=== PATIENT | male | born 1955 | race Hispanic/Latino ===

== ENCOUNTER 2024-01-10 10:04 | Emergency (ER) | payer OTHER, SELFPAY ==
[2024-01-10 10:11] VITALS: BP 146/82
--- NOTE | 2024-01-10 10:34 | ED.GENMED ---
Addendum entered and electronically signed by Song Thacker MD 01/12/24 21:51:
Pt seen in ED by case management -currently there are no beds and facilities able to accommodate the patient as transfer. Without information, family at bedside, would like to take the patient home, where he is closer to family as well as his
healthcare professionals. Additional resources provided by case management prior to discharge. Patient will be given Klonopin prior to discharge, due to 2-hour ride back home. Family made aware that as soon as he returns home, his primary care
physician will need to be contacted to continue all his previous medications.
Original Note:
History of Present Illness
<Karely Gonzales MD, Resident - Last Filed: 01/11/24 06:19>
General
Chief Complaint: Crisis Evaluation
Time Seen by Provider: 01/10/24 10:08
History of Present Illness
History of Present Illness:
68-year-old male with past medical history of CKD s/p kidney transplant, dementia (Lewy body), MDD, hep C, COPD, hypertension presenting to the ED via EMS from [facility] for combating staff. Staff member is en route for 302. Patient is anxious but
cooperative. Denies any systemic symptoms. Patient does not know which hospital he is not, where he lives and the time of the day. States wants to get out of the hospital and says 'it is getting very dangerous here'. Denies auditory or visual
hallucinations, SI/HI.
Review of Systems
<Karely Gonzales MD, Resident - Last Filed: 01/11/24 06:19>
Review of Systems
Constitutional: Reports no symptoms
EENT: Reports no symptoms
Respiratory: Reports no symptoms
Cardiac: Reports no symptoms
ABD/GI: Reports no symptoms
: Reports no symptoms
Musculoskeletal: Reports no symptoms
Skin: Reports no symptoms
Neurological: Reports no symptoms
Endocrine: Reports no symptoms
Hematologic/Lymphatic: Reports no symptoms
Psychiatric: Reports no symptoms
Phy Exam
<Karely Gonzales MD, Resident - Last Filed: 01/11/24 06:19>
Physical Exam
Physical Exam:
GENERAL: Alert, in no apparent distress
EYE: pupils equal and reactive
NECK: Supple, no significant adenopathy.
ENT: o/p clr, mmm.
CARDIAC: Regular rate and rhythm.
LUNGS: Clear breath sounds bilaterally, no acute respiratory distress, no wheezes/rales/rhonchi
ABDOMEN: Soft, without focal tenderness, no r/g, no cvat
NEUROLOGICAL: Alert and oriented, no focal neuro deficits
SKIN: Warm and dry, skin intact.
MUSCULOSKELETAL: No edema, well perfused.
PSYCH: Normal and appropriate interaction.
Course
<Karely Gonzales MD, Resident - Last Filed: 01/11/24 06:19>
Orders/Labs/Results
Orders:
Orders
01/10/24 10:54
Crisis Consult Urgent
Reason for Consult: 302
01/10/24 10:59
PSYCHIATRY CONSULT Urgent
Consulting Provider: Alex Ojeda
Was physician already notified: Yes
Reason for consult: 302
01/10/24 11:13
Case Management Consult ONCE
Case Management Consult: Other
Urinalysis Reflex To Culture Urgent
01/10/24 11:17
Basic Metabolic Panel Urgent
Complete Blood Count/No Diff Urgent
TSH Reflex To Free T4 Urgent
01/10/24 14:35
Apixaban [Eliquis] 5 mg PO NOW STA
Budesonide/Formoterol 160/4.5 [Symbicort 160/4.5 Mcg Inhaler] 2 puff INH R NOW STA
Clonazepam [Klonopin] 0.5 mg PO NOW STA
Famotidine [Pepcid] 20 mg PO NOW STA
01/10/24 14:40
Sodium Bicarbonate 650 mg PO NOW STA
01/10/24 14:43
Lorazepam [Ativan] 0.5 mg PO Q4HPRN PRN
01/10/24 14:58
Nebivolol HCl [Bystolic] 20 mg PO NOW STA
01/10/24 Dinner
Regular
At Your Request: Limited, Termite Exterminator Required
Amlodipine [Norvasc] 2.5 mg PO DAILY
Quetiapine Fumarate [Seroquel] 100 mg PO NOW STA
01/10/24 15:02
Sertraline HCl [Zoloft] 100 mg PO NOW STA
01/10/24 15:04
Tacrolimus [Prograf] 1 mg PO NOW STA
01/10/24 16:55
Haloperidol [Haldol] 1 mg PO NOW STA
01/10/24 17:40
PRN Pain Medication Management As Directed
May give lesser potent ordered pain med per pt: Yes
preference::
Protocol:: Medication orders for pain may be administered in a
manner that supports deferring to patient preference
when the pt is:
- Requesting an ordered lesser potent pain medication.
Least to most potent pain medications are defined
as: acetaminophen < NSAID < tramadol < opioids
(morphine, oxycodone, hydromorphone).
- Requesting a lesser dose of the same medication IF
ORDERED.
- Requesting a less intrusive route of administration
if both routes are prescribed by the provider (PO <
IV).
01/10/24 17:41
Code Status As Directed
Resuscitation Status: Full Code
01/10/24 18:00
Quetiapine Fumarate [Seroquel] 100 mg PO QPM
01/10/24 18:16
Acetaminophen [Tylenol] 650 mg PO Q6HPRN PRN
Bisacodyl [Dulcolax] 10 mg RECTAL DAILYPRN PRN
Haloperidol Lactate [Haldol] 1 mg IV Q4HPRN PRN
Magnesium Hydroxide [Milk of Magnesia] 30 ml PO [id number] PRN
Phosphate Enema [Fleet Phosphate Enema-Adult] 118 ml RECTAL DAILYPRN PRN
Polyethylene Glycol Powder [Miralax] 17 grams PO DAILYPRN PRN
Simethicone [Mylicon] 80 mg PO Q6HPRN PRN
sennosides-docusate sodium [Senna Plus] 1 tab-cap PO DAILYPRN PRN
01/10/24 20:00
Apixaban [Eliquis] 5 mg PO BID
Budesonide/Formoterol 160/4.5 [Symbicort 160/4.5 Mcg Inhaler] 1 puff INH R BID
Cholecalciferol (Vitamin D3) [VITAMIN D3 (cholecalciferol)] 125 mcg PO Q48H
Nebivolol HCl [Bystolic] 20 mg PO BID
Sodium Bicarbonate 650 mg PO BID
01/10/24 22:00
Melatonin 3 mg PO HS
Tacrolimus [Prograf] 1 mg PO HS
clonazepam 0.5 mg PO TID
mycophenolate sodium 720 mg PO TID
01/10/24 22:59
Bisacodyl [Dulcolax] 10 mg RECTAL DAILYPRN PRN
01/10/24 23:00
Clonazepam [Klonopin] 0.5 mg PO TID
Sodium Bicarbonate 650 mg PO BID
Tacrolimus [Prograf] 1 mg PO HS
01/10/24 23:04
Magnesium Hydroxide [Milk of Magnesia] 30 ml PO [id number] PRN
01/10/24 23:07
Polyethylene Glycol Powder [Miralax] 17 grams PO DAILYPRN PRN
01/10/24 23:08
Docusate W/Senna [Senokot-S] 1 tablet PO DAILYPRN PRN
Simethicone [Mylicon] 80 mg PO Q6HPRN PRN
01/10/24 23:09
Phosphate Enema [Fleet Phosphate Enema-Adult] 118 ml RECTAL DAILYPRN PRN
01/10/24 23:15
Melatonin 3 mg PO HS
Mycophenolic Acid Dr [Myfortic Delayed Rel.] 720 mg PO TID
Nebivolol HCl [Bystolic] 20 mg PO BID
01/10/24 23:16
Acetaminophen [Tylenol] 650 mg PO Q6HPRN PRN
01/11/24 08:00
Amlodipine [Norvasc] 7.5 mg PO DAILY
Amlodipine [Norvasc] 7.5 mg PO DAILY
Apixaban [Eliquis] 5 mg PO BID
Aspirin Low Dose EC [Aspir Low (Enteric Coated)] 81 mg PO DAILY
Aspirin Low Dose EC [Aspir Low (Enteric Coated)] 81 mg PO DAILY
Budesonide/Formoterol 160/4.5 [Symbicort 160/4.5 Mcg Inhaler] 1 puff INH R BID
Cholecalciferol (Vitamin D3) [VITAMIN D3 (cholecalciferol)] 125 mcg PO Q48H
Cyanocobalamin [Vitamin B-12] 1,000 mcg PO DAILY
Cyanocobalamin [Vitamin B-12] 1,000 mcg PO DAILY
Famotidine [Pepcid] 20 mg PO DAILY
Famotidine [Pepcid] 20 mg PO DAILY
Loperamide [Imodium Liquid] 7.5 mg PO DAILY
Loperamide [Imodium Liquid] 7.5 mg PO DAILY
Magnesium l-Lactate [Mag-Tab Sr] 168 mg PO DAILY
Multivitamin [Theragran] 1 tablet PO DAILY
Multivitamin [Theragran] 1 tablet PO DAILY
Nebivolol HCl [Bystolic] 20 mg PO BID
Quetiapine Fumarate [Seroquel] 125 mg PO DAILY
Quetiapine Fumarate [Seroquel] 125 mg PO DAILY
Sertraline HCl [Zoloft] 100 mg PO DAILY
Sertraline HCl [Zoloft] 50 mg PO DAILY
Tacrolimus [Prograf] 2 mg PO DAILY
Tacrolimus [Prograf] 2 mg PO DAILY
Tamsulosin [Flomax] 0.4 mg PO DAILY
Tamsulosin [Flomax] 0.4 mg PO DAILY
Thiamine HCl [Vitamin B1] 100 mg PO DAILY
Thiamine HCl [Vitamin B1] 100 mg PO DAILY
magnesium chloride 128 mg PO DAILY
Abnormal Lab Results
01/10/24
11:17
RBC 3.48 L 10^6/uL
(4.70-6.10)
Hgb 9.9 L g/dL
(13.0-18.0)
Hct 31.5 L %
(39.0-52.0)
MCHC 31.4 L g/dL
(33.0-37.0)
Chloride 109 H mmol/L
(98-107)
BUN 30 H mg/dl
(9-20)
01/10/24 11:17
01/10/24 11:17
Vital Signs
Initial and Last Documented VS:
Initial Vital Signs
Pulse Ox
98
01/10/24 10:10
Last Documented Vital Signs
Temp Pulse Resp BP Pulse Ox
99 F 72 16 151/68 97
01/10/24 10:11 01/11/24 04:00 01/11/24 04:00 01/11/24 04:00 01/11/24 03:00
<Lewis Mcghee MD - Last Filed: 01/10/24 11:54>
Orders/Labs/Results
Orders:
Orders
01/10/24 10:54
Crisis Consult Urgent
Reason for Consult: 302
01/10/24 10:59
PSYCHIATRY CONSULT Urgent
Consulting Provider: Alex Ojeda
Was physician already notified: Yes
Reason for consult: 302
01/10/24 11:13
Case Management Consult ONCE
Case Management Consult: Other
Urinalysis Reflex To Culture Urgent
01/10/24 11:17
Basic Metabolic Panel Urgent
Complete Blood Count/No Diff Urgent
TSH Reflex To Free T4 Urgent
01/10/24 14:35
Apixaban [Eliquis] 5 mg PO NOW STA
Budesonide/Formoterol 160/4.5 [Symbicort 160/4.5 Mcg Inhaler] 2 puff INH R NOW STA
Clonazepam [Klonopin] 0.5 mg PO NOW STA
Famotidine [Pepcid] 20 mg PO NOW STA
01/10/24 14:40
Sodium Bicarbonate 650 mg PO NOW STA
01/10/24 14:43
Lorazepam [Ativan] 0.5 mg PO Q4HPRN PRN
01/10/24 14:58
Nebivolol HCl [Bystolic] 20 mg PO NOW STA
01/10/24 Dinner
Regular
At Your Request: Limited, Termite Exterminator Required
Amlodipine [Norvasc] 2.5 mg PO DAILY
Quetiapine Fumarate [Seroquel] 100 mg PO NOW STA
01/10/24 15:02
Sertraline HCl [Zoloft] 100 mg PO NOW STA
01/10/24 15:04
Tacrolimus [Prograf] 1 mg PO NOW STA
01/10/24 16:55
Haloperidol [Haldol] 1 mg PO NOW STA
01/10/24 17:40
PRN Pain Medication Management As Directed
May give lesser potent ordered pain med per pt: Yes
preference::
Protocol:: Medication orders for pain may be administered in a
manner that supports deferring to patient preference
when the pt is:
- Requesting an ordered lesser potent pain medication.
Least to most potent pain medications are defined
as: acetaminophen < NSAID < tramadol < opioids
(morphine, oxycodone, hydromorphone).
- Requesting a lesser dose of the same medication IF
ORDERED.
- Requesting a less intrusive route of administration
if both routes are prescribed by the provider (PO <
IV).
01/10/24 17:41
Code Status As Directed
Resuscitation Status: Full Code
01/10/24 18:00
Quetiapine Fumarate [Seroquel] 100 mg PO QPM
01/10/24 18:16
Acetaminophen [Tylenol] 650 mg PO Q6HPRN PRN
Bisacodyl [Dulcolax] 10 mg RECTAL DAILYPRN PRN
Haloperidol Lactate [Haldol] 1 mg IV Q4HPRN PRN
Magnesium Hydroxide [Milk of Magnesia] 30 ml PO [id number] PRN
Phosphate Enema [Fleet Phosphate Enema-Adult] 118 ml RECTAL DAILYPRN PRN
Polyethylene Glycol Powder [Miralax] 17 grams PO DAILYPRN PRN
Simethicone [Mylicon] 80 mg PO Q6HPRN PRN
sennosides-docusate sodium [Senna Plus] 1 tab-cap PO DAILYPRN PRN
01/10/24 20:00
Apixaban [Eliquis] 5 mg PO BID
Budesonide/Formoterol 160/4.5 [Symbicort 160/4.5 Mcg Inhaler] 1 puff INH R BID
Cholecalciferol (Vitamin D3) [VITAMIN D3 (cholecalciferol)] 125 mcg PO Q48H
Nebivolol HCl [Bystolic] 20 mg PO BID
Sodium Bicarbonate 650 mg PO BID
01/10/24 22:00
Melatonin 3 mg PO HS
Tacrolimus [Prograf] 1 mg PO HS
clonazepam 0.5 mg PO TID
mycophenolate sodium 720 mg PO TID
01/10/24 22:59
Bisacodyl [Dulcolax] 10 mg RECTAL DAILYPRN PRN
01/10/24 23:00
Clonazepam [Klonopin] 0.5 mg PO TID
Sodium Bicarbonate 650 mg PO BID
Tacrolimus [Prograf] 1 mg PO HS
01/10/24 23:04
Magnesium Hydroxide [Milk of Magnesia] 30 ml PO [id number] PRN
01/10/24 23:07
Polyethylene Glycol Powder [Miralax] 17 grams PO DAILYPRN PRN
01/10/24 23:08
Docusate W/Senna [Senokot-S] 1 tablet PO DAILYPRN PRN
Simethicone [Mylicon] 80 mg PO Q6HPRN PRN
01/10/24 23:09
Phosphate Enema [Fleet Phosphate Enema-Adult] 118 ml RECTAL DAILYPRN PRN
01/10/24 23:15
Melatonin 3 mg PO HS
Mycophenolic Acid Dr [Myfortic Delayed Rel.] 720 mg PO TID
Nebivolol HCl [Bystolic] 20 mg PO BID
01/10/24 23:16
Acetaminophen [Tylenol] 650 mg PO Q6HPRN PRN
01/11/24 08:00
Amlodipine [Norvasc] 7.5 mg PO DAILY
Amlodipine [Norvasc] 7.5 mg PO DAILY
Apixaban [Eliquis] 5 mg PO BID
Aspirin Low Dose EC [Aspir Low (Enteric Coated)] 81 mg PO DAILY
Aspirin Low Dose EC [Aspir Low (Enteric Coated)] 81 mg PO DAILY
Budesonide/Formoterol 160/4.5 [Symbicort 160/4.5 Mcg Inhaler] 1 puff INH R BID
Cholecalciferol (Vitamin D3) [VITAMIN D3 (cholecalciferol)] 125 mcg PO Q48H
Cyanocobalamin [Vitamin B-12] 1,000 mcg PO DAILY
Cyanocobalamin [Vitamin B-12] 1,000 mcg PO DAILY
Famotidine [Pepcid] 20 mg PO DAILY
Famotidine [Pepcid] 20 mg PO DAILY
Loperamide [Imodium Liquid] 7.5 mg PO DAILY
Loperamide [Imodium Liquid] 7.5 mg PO DAILY
Magnesium l-Lactate [Mag-Tab Sr] 168 mg PO DAILY
Multivitamin [Theragran] 1 tablet PO DAILY
Multivitamin [Theragran] 1 tablet PO DAILY
Nebivolol HCl [Bystolic] 20 mg PO BID
Quetiapine Fumarate [Seroquel] 125 mg PO DAILY
Quetiapine Fumarate [Seroquel] 125 mg PO DAILY
Sertraline HCl [Zoloft] 100 mg PO DAILY
Sertraline HCl [Zoloft] 50 mg PO DAILY
Tacrolimus [Prograf] 2 mg PO DAILY
Tacrolimus [Prograf] 2 mg PO DAILY
Tamsulosin [Flomax] 0.4 mg PO DAILY
Tamsulosin [Flomax] 0.4 mg PO DAILY
Thiamine HCl [Vitamin B1] 100 mg PO DAILY
Thiamine HCl [Vitamin B1] 100 mg PO DAILY
magnesium chloride 128 mg PO DAILY
Abnormal Lab Results
01/10/24
11:17
RBC 3.48 L 10^6/uL
(4.70-6.10)
Hgb 9.9 L g/dL
(13.0-18.0)
Hct 31.5 L %
(39.0-52.0)
MCHC 31.4 L g/dL
(33.0-37.0)
Chloride 109 H mmol/L
(98-107)
BUN 30 H mg/dl
(9-20)
01/10/24 11:17
01/10/24 11:17
Vital Signs
Initial and Last Documented VS:
Initial Vital Signs
Pulse Ox
98
01/10/24 10:10
Last Documented Vital Signs
Temp Pulse Resp BP Pulse Ox
99 F 72 16 151/68 97
01/10/24 10:11 01/11/24 04:00 01/11/24 04:00 01/11/24 04:00 01/11/24 03:00
<Karely Gonzales MD, Resident - Last Filed: 01/11/24 06:19>
*Critical Care Note
Total Time (30-74mins, 75-104mins- exclusive of procedures): Not Applicable
ED Attending Note
<Karely Gonzales MD, Resident - Last Filed: 01/11/24 06:19>
-
Portions of this chart may have been created with voice recognition software.� Occasional wrong word or��sound alike� substitutions may have occurred due to the inherent limitations of voice recognition software.
<Lewis Mcghee MD - Last Filed: 01/10/24 11:54>
ED Attending Note
Patient seen and examined by attending physician: Yes
I performed a history and physical exam of patient and discussed management with resident, I reviewed resident's note and agree with documented findings and plan of care.: Yes
ED Attending Note:
68-year-old male sent in for agitated behavior from the dementia facility. He got there recently after a prolonged stay at [facility]. Apparently has been a placement issue. Denies acute medical complaints. However the facility
apparently will not take him back.
On exam patient is nontoxic in no distress. He is mildly tearful. Cooperative. Family is here in the room. He knows his name. Does not know the year or that he is at [facility]. He is grossly nonfocal. Lungs clear and equal. Heart
regular rate and rhythm. Abdomen is soft and nontender. Scar right lower quadrant. Old shunt right arm. Warm and dry.
Impression is agitated dementia issues. Clearly is a placement issue. Will get case management, psychiatry and crisis involved. Check medical labs. Old records from [facility]
Discharge Plan
Departure
Patient Disposition: Home (Routine Discharge)
Date of Disposition: 01/10/24
Time of Disposition: 14:51
Patient with high blood pressure during this ER visit?: Yes
Condition: Fair
Discharge Problem:
Behavioral changes secondary to dementia
Instructions: BLOOD PRESSURE
Prescriptions:
No Action
acetaminophen [Tylenol] 325 mg Tablet
650 mg PO Q6HPRN PRN (Reason: mild pain)
polyethylene glycol 3350 [Miralax] 17 gram Powder In Packet
17 g PO DAILYPRN PRN (Reason: constipation)
sertraline 100 mg Tablet
100 mg PO DAILY
cyanocobalamin (vitamin B-12) 1,000 mcg Tablet
1,000 mcg PO DAILY
thiamine HCl (vitamin B1) 100 mg Tablet
100 mg PO DAILY
Theragen Tablet
1 tab PO DAILY
amlodipine [Norvasc] 2.5 mg Tablet
7.5 mg PO DAILY
melatonin 3 mg Tablet
3 mg PO HS
aspirin 81 mg Tablet,Delayed Release (Dr/Ec)
81 mg PO DAILY
quetiapine [Seroquel] 100 mg Tablet
125 mg PO DAILY
famotidine [Pepcid] 20 mg Tablet
20 mg PO DAILY
magnesium hydroxide [Milk of Magnesia] 400 mg/5 mL Suspension
2,400 mg PO [id number] PRN (Reason: constipation)
tamsulosin [Flomax] 0.4 mg Capsule
0.4 mg PO DAILY
sodium bicarbonate 650 mg Tablet
650 mg PO BID
bisacodyl [Dulcolax (bisacodyl)] 10 mg Suppository
[address] DAILYPRN PRN (Reason: if no bm aftr mom)
lidocaine 5 % Adhesive Patch,Medicated
1 patch TOPICAL DAILY
Fleet Enema 19-7 gram/118 mL Enema
[address] DAILYPRN PRN (Reason: if no bm aftr dulolcax)
tacrolimus 1 mg Capsule
1 mg PO HS
tacrolimus 1 mg Capsule
2 mg PO DAILY
simethicone [Gas-X] 80 mg Tablet,Chewable
80 mg PO Q6HPRN PRN (Reason: gas pains)
clonazepam 0.5 mg Tablet,Disintegrating
0.5 mg PO TID
mycophenolate sodium 360 mg Tablet,Delayed Release (Dr/Ec)
720 mg PO TID
loperamide 1 mg/7.5 mL Liquid
7.5 mg PO DAILY
budesonide-formoterol [Symbicort] 160-4.5 mcg/actuation Hfa Aerosol Inhaler
1 inh INHALATION R BID
nebivolol 20 mg Tablet
20 mg PO BID
cholecalciferol (vitamin D3) [Vitamin D3] 125 mcg (5,000 unit) Tablet
125 mcg PO Q48H
Eliquis 5 mg Tablet
5 mg PO BID
Senna Plus 8.6-50 mg Capsule
1 tab-cap PO DAILYPRN PRN (Reason: constipation)
magnesium chloride 64 mg magnesium Tablet
128 mg PO DAILY
Referrals:
Jonah Downing DO [Family Provider] -
Activity Restrictions/Additional Instructions:
Please return to the emergency department with any concerning symptoms.
Interventions
Interventions:
*Risk Screen - Suicide Last Done: 01/10/24 10:24
*General Assessment Last Done: 01/10/24 10:24
*Neglect/Abuse Screening Last Done: 01/10/24 10:24
*ED COVID-19 Vaccine History Last Done: 01/10/24 10:24
ED-Psychological Assessment Last Done: 01/10/24 10:25
Discharge Date and Time
Print Language: TAMAZIGHT
[2024-01-10 11:00] VITALS: BP 171/89
[2024-01-10 11:30] LABS: Hematocrit 31.5 % (39.0-52.0); Hemoglobin 9.9 g/dL (13.0-18.0); Mean Corp Hgb Conc. 31.4 g/dL (33.0-37.0); Mean Corpuscular Hgb 28.4 pg (27.0-31.0); Mean Corpuscular Volume 90.5 fL (80.0-94.0); Mean Platelet Volume 9.7 fL (7.4-10.4); Platelet Count 280 10^3/uL (130-400); Red Blood Cell Count 3.48 10^6/uL (4.70-6.10); Red Cell Dist. Width 12.9 % (11.5-14.5); White Blood Cell Count 5.8 10^3/uL (4.8-10.8)
[2024-01-10 11:50] LABS: Blood Urea Nitrogen 30 mg/dl (9-20); Calcium 9.4 mg/dl (8.4-10.2); Carbon Dioxide 26 mmol/L (22-30); Chloride 109 mmol/L (98-107); Glucose 97 mg/dl (70-99); Potassium 4.2 mmol/L (3.5-5.1); Sodium 143 mmol/L (135-145); eGFR > 60.00
[2024-01-10 12:00] VITALS: BP 173/95
[2024-01-10 12:15] LABS: TSH Reflex To Free T4 0.75 uIU/ml (0.47-4.68)
[2024-01-10 13:00] VITALS: BP 168/72
--- NOTE | 2024-01-10 14:27 | CS.PSYCHR ---
Consult Summary - Psychiatry
-
Pt seen, reviewed with Crisis staff. Pt is a 68 yo male brought in from longterm, where staff filed a 302 due to alleged aggressive behavior. Pt reportedly diagnosed with Lewy Body dementia approx 5 months ago, was in [facility] for months, then placed in [facility]. Pt seen resting calmly on stretcher, watching cartoon on TV. Pt alert, calm, cooperative, but unable to answer orientation questions or give any information. He states his and
children just left. Pt denies anxiety or depression. Pt shows no agitation, no signs of psychosis. 302 was denied by the [facility] delegate due to behavior arising from dementia.
PMH: CKD s/p kidney transplant, dementia (Lewy body), Hep C, COPD, hypertension
Psych Hx: unspecified hx of depression, diagnosed with dementia- suspected Lewy Body dz
Psych Meds: ? Klonopin 0.5 mg TID (not confirmed in PDMP), Sertraline 100 mg QD, Seroquel 125 mg QD, supplement- melatonin 3 mg HS
SH: unable to obtain
MSE: alert, sensorium appears intact, oriented to self only. Speech coherent, thought rambling, unable to answer questions. No agitation, no signs of psychosis.
[facility] [facility]
Imp/Rec: Dementia- suspected Lewy Body dz, although no hx of parkinsonian symptoms
Pt does not present the need for any psychiatric intervention or psychiatric facility. 302 was not approved due to primary issue being dementia
Unclear if pt is on Klonopin- does not appear in PDMP. Would consider resuming Sertraline and Seroquel if confirmed as established medications
Will follow
[2024-01-10] MEDS: ELIQUIS 5 MG PO ×2 (15:18→19:34)
[2024-01-10] MEDS: KLONOPIN 0.5 MG PO (15:19)
[2024-01-10] MEDS: SODIUM BICARBONATE 650 MG PO ×2 (15:20→19:34)
[2024-01-10] MEDS: PEPCID 20 MG PO (15:20)
[2024-01-10] MEDS: NORVASC 2.5 MG PO (15:22)
[2024-01-10] MEDS: BYSTOLIC 20 MG PO ×2 (15:22→19:34)
[2024-01-10] MEDS: ZOLOFT 100 MG PO (15:24)
[2024-01-10] MEDS: SEROQUEL 100 MG PO ×2 (15:24→19:34)
[2024-01-10] MEDS: PROGRAF 1 MG PO (15:24)
[2024-01-10] MEDS: ATIVAN 0.5 MG PO (16:08)
--- NOTE | 2024-01-10 16:30 | CM ---
ED CM consulted for placement issue
Pt admitted as a LTC resident MA pending to [facility] on Sat 01/07
Not under auth as without skillable need
He had lengthy stay at [facility] due to dementia behaviors, difficulty with arranging for SNF
Call with crisis- 302 initially petitioned and denied today
Bedside meeting with son/Sheldon, his spouse, and dtr/Clarisse
Unable to provide 24/7 care in their home due to work and young children in the home
Bela is listed as spouse but they were never legally , she is their mother
Children are not POA
AAA/waiver info and along with legal services provided to children for guardianship
Their hope is make arrangements for him to return back to the [facility] for LTC eventually
Multiple calls throughout day with Merlin/Rose
SNF refusal to readmit due to behaviors as pt acted out on roommate
Update to CM Director/Katey Rogel
Unable to secure SNF return bed at this time
CM will remain available for dc planning
[2024-01-10] MEDS: HALDOL 1 MG PO (17:21)
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
[2024-01-10] MEDS: VITAMIN D3 (cholecalciferol) 125 MCG PO (19:34)
[2024-01-10 19:37] VITALS: BP 152/77
[2024-01-11] MEDS: PROGRAF 1 MG PO (00:21)
[2024-01-11] MEDS: MYFORTIC DELAYED REL. 720 MG PO ×2 (00:22→08:38)
[2024-01-11] MEDS: MELATONIN 3 MG PO (00:29)
[2024-01-11] MEDS: SODIUM BICARBONATE 650 MG PO ×2 (00:30→08:34)
[2024-01-11 00:45] VITALS: BP 145/72
[2024-01-11 01:00] VITALS: BP 153/63
[2024-01-11 02:00] VITALS: BP 145/63
[2024-01-11 03:00] VITALS: BP 148/70
[2024-01-11 04:00] VITALS: BP 151/68
[2024-01-11] MEDS: NORVASC 7.5 MG PO (08:31)
[2024-01-11] MEDS: ASPIR LOW (ENTERIC COATED) 81 MG PO (08:31)
[2024-01-11] MEDS: ELIQUIS 5 MG PO ×2 (08:32→15:03)
[2024-01-11] MEDS: VITAMIN B1 100 MG PO (08:32)
[2024-01-11] MEDS: THERAGRAN 1 TABLET PO (08:32)
[2024-01-11] MEDS: MAG-TAB SR 168 MG PO (08:34)
[2024-01-11] MEDS: FLOMAX 0.4 MG PO (08:34)
[2024-01-11] MEDS: PEPCID 20 MG PO (08:34)
[2024-01-11] MEDS: BYSTOLIC 20 MG PO (08:36)
[2024-01-11] MEDS: ZOLOFT 100 MG PO (08:36)
[2024-01-11] MEDS: VITAMIN B-12 1000 MCG PO (08:36)
[2024-01-11] MEDS: IMODIUM LIQUID 7.5 MG PO (08:37)
[2024-01-11] MEDS: VITAMIN D3 (cholecalciferol) 125 MCG PO (08:39)
[2024-01-11] MEDS: PROGRAF 2 MG PO (08:39)
[2024-01-11] MEDS: SEROQUEL 125 MG PO (08:40)
[2024-01-11] MEDS: ZOLOFT 50 MG PO (08:42)
[2024-01-11 08:45] VITALS: BP 159/86
[2024-01-11] MEDS: HALDOL 1 MG PO (14:09)
--- NOTE | 2024-01-11 14:55 | ED.GENMED ---
History of Present Illness
General
Chief Complaint: Crisis Evaluation
Time Seen by Provider: 01/10/24 10:08
Course
Orders/Labs/Results
Orders:
Orders
01/10/24 10:54
Crisis Consult Urgent
Reason for Consult: 302
01/10/24 10:59
PSYCHIATRY CONSULT Urgent
Consulting Provider: Alex Ojeda
Was physician already notified: Yes
Reason for consult: 302
01/10/24 11:13
Case Management Consult ONCE
Case Management Consult: Other
Urinalysis Reflex To Culture Urgent
01/10/24 11:17
Basic Metabolic Panel Urgent
Complete Blood Count/No Diff Urgent
TSH Reflex To Free T4 Urgent
01/10/24 14:35
Apixaban [Eliquis] 5 mg PO NOW STA
Budesonide/Formoterol 160/4.5 [Symbicort 160/4.5 Mcg Inhaler] 2 puff INH R NOW STA
Clonazepam [Klonopin] 0.5 mg PO NOW STA
Famotidine [Pepcid] 20 mg PO NOW STA
01/10/24 14:40
Sodium Bicarbonate 650 mg PO NOW STA
01/10/24 14:43
Lorazepam [Ativan] 0.5 mg PO Q4HPRN PRN
01/10/24 14:58
Nebivolol HCl [Bystolic] 20 mg PO NOW STA
01/10/24 Dinner
Regular
At Your Request: Limited, Mentally Impaired Teacher Required
Amlodipine [Norvasc] 2.5 mg PO DAILY
Quetiapine Fumarate [Seroquel] 100 mg PO NOW STA
01/10/24 15:02
Sertraline HCl [Zoloft] 100 mg PO NOW STA
01/10/24 15:04
Tacrolimus [Prograf] 1 mg PO NOW STA
01/10/24 16:55
Haloperidol [Haldol] 1 mg PO NOW STA
01/10/24 17:40
PRN Pain Medication Management As Directed
May give lesser potent ordered pain med per pt: Yes
preference::
Protocol:: Medication orders for pain may be administered in a
manner that supports deferring to patient preference
when the pt is:
- Requesting an ordered lesser potent pain medication.
Least to most potent pain medications are defined
as: acetaminophen < NSAID < tramadol < opioids
(morphine, oxycodone, hydromorphone).
- Requesting a lesser dose of the same medication IF
ORDERED.
- Requesting a less intrusive route of administration
if both routes are prescribed by the provider (PO <
IV).
01/10/24 17:41
Code Status As Directed
Resuscitation Status: Full Code
01/10/24 18:00
Quetiapine Fumarate [Seroquel] 100 mg PO QPM
01/10/24 18:16
Acetaminophen [Tylenol] 650 mg PO Q6HPRN PRN
Bisacodyl [Dulcolax] 10 mg RECTAL DAILYPRN PRN
Haloperidol Lactate [Haldol] 1 mg IV Q4HPRN PRN
Magnesium Hydroxide [Milk of Magnesia] 30 ml PO [id number] PRN
Phosphate Enema [Fleet Phosphate Enema-Adult] 118 ml RECTAL DAILYPRN PRN
Polyethylene Glycol Powder [Miralax] 17 grams PO DAILYPRN PRN
Simethicone [Mylicon] 80 mg PO Q6HPRN PRN
sennosides-docusate sodium [Senna Plus] 1 tab-cap PO DAILYPRN PRN
01/10/24 20:00
Apixaban [Eliquis] 5 mg PO BID
Budesonide/Formoterol 160/4.5 [Symbicort 160/4.5 Mcg Inhaler] 1 puff INH R BID
Cholecalciferol (Vitamin D3) [VITAMIN D3 (cholecalciferol)] 125 mcg PO Q48H
Nebivolol HCl [Bystolic] 20 mg PO BID
Sodium Bicarbonate 650 mg PO BID
01/10/24 22:00
Melatonin 3 mg PO HS
Tacrolimus [Prograf] 1 mg PO HS
clonazepam 0.5 mg PO TID
mycophenolate sodium 720 mg PO TID
01/10/24 22:59
Bisacodyl [Dulcolax] 10 mg RECTAL DAILYPRN PRN
01/10/24 23:00
Clonazepam [Klonopin] 0.5 mg PO TID
Sodium Bicarbonate 650 mg PO BID
Tacrolimus [Prograf] 1 mg PO HS
01/10/24 23:04
Magnesium Hydroxide [Milk of Magnesia] 30 ml PO [id number] PRN
01/10/24 23:07
Polyethylene Glycol Powder [Miralax] 17 grams PO DAILYPRN PRN
01/10/24 23:08
Docusate W/Senna [Senokot-S] 1 tablet PO DAILYPRN PRN
Simethicone [Mylicon] 80 mg PO Q6HPRN PRN
01/10/24 23:09
Phosphate Enema [Fleet Phosphate Enema-Adult] 118 ml RECTAL DAILYPRN PRN
01/10/24 23:15
Melatonin 3 mg PO HS
Mycophenolic Acid Dr [Myfortic Delayed Rel.] 720 mg PO TID
Nebivolol HCl [Bystolic] 20 mg PO BID
01/10/24 23:16
Acetaminophen [Tylenol] 650 mg PO Q6HPRN PRN
01/11/24 08:00
Amlodipine [Norvasc] 7.5 mg PO DAILY
Amlodipine [Norvasc] 7.5 mg PO DAILY
Apixaban [Eliquis] 5 mg PO BID
Aspirin Low Dose EC [Aspir Low (Enteric Coated)] 81 mg PO DAILY
Aspirin Low Dose EC [Aspir Low (Enteric Coated)] 81 mg PO DAILY
Budesonide/Formoterol 160/4.5 [Symbicort 160/4.5 Mcg Inhaler] 1 puff INH R BID
Cholecalciferol (Vitamin D3) [VITAMIN D3 (cholecalciferol)] 125 mcg PO Q48H
Cyanocobalamin [Vitamin B-12] 1,000 mcg PO DAILY
Cyanocobalamin [Vitamin B-12] 1,000 mcg PO DAILY
Famotidine [Pepcid] 20 mg PO DAILY
Famotidine [Pepcid] 20 mg PO DAILY
Loperamide [Imodium Liquid] 7.5 mg PO DAILY
Loperamide [Imodium Liquid] 7.5 mg PO DAILY
Magnesium l-Lactate [Mag-Tab Sr] 168 mg PO DAILY
Multivitamin [Theragran] 1 tablet PO DAILY
Multivitamin [Theragran] 1 tablet PO DAILY
Nebivolol HCl [Bystolic] 20 mg PO BID
Quetiapine Fumarate [Seroquel] 125 mg PO DAILY
Quetiapine Fumarate [Seroquel] 125 mg PO DAILY
Sertraline HCl [Zoloft] 100 mg PO DAILY
Sertraline HCl [Zoloft] 50 mg PO DAILY
Tacrolimus [Prograf] 2 mg PO DAILY
Tacrolimus [Prograf] 2 mg PO DAILY
Tamsulosin [Flomax] 0.4 mg PO DAILY
Tamsulosin [Flomax] 0.4 mg PO DAILY
Thiamine HCl [Vitamin B1] 100 mg PO DAILY
Thiamine HCl [Vitamin B1] 100 mg PO DAILY
magnesium chloride 128 mg PO DAILY
01/11/24 13:58
Haloperidol [Haldol] 1 mg PO NOW STA
01/11/24 14:55
Clonazepam [Klonopin] 1 mg PO NOW STA
Abnormal Lab Results
01/10/24
11:17
RBC 3.48 L 10^6/uL
(4.70-6.10)
Hgb 9.9 L g/dL
(13.0-18.0)
Hct 31.5 L %
(39.0-52.0)
MCHC 31.4 L g/dL
(33.0-37.0)
Chloride 109 H mmol/L
(98-107)
BUN 30 H mg/dl
(9-20)
01/10/24 11:17
01/10/24 11:17
Vital Signs
Initial and Last Documented VS:
Initial Vital Signs
Pulse Ox
98
01/10/24 10:10
Last Documented Vital Signs
Temp Pulse Resp BP Pulse Ox
99 F 70 16 159/86 98
01/10/24 10:11 01/11/24 08:45 01/11/24 08:45 01/11/24 08:45 01/11/24 08:45
Update Note
Update Note:
Pt seen in ED by case management -currently there are no beds and facilities able to accommodate the patient as transfer. Without information, family at bedside, would like to take the patient home, where he is closer to family as well as his
healthcare professionals. Additional resources provided by case management prior to discharge. Patient will be given Klonopin prior to discharge, due to 2-hour ride back home. Family made aware that as soon as he returns home, his primary care
physician will need to be contacted to continue all his previous medications.
ED Attending Note
-
Portions of this chart may have been created with voice recognition software.� Occasional wrong word or��sound alike� substitutions may have occurred due to the inherent limitations of voice recognition software.
Discharge Plan
Departure
Patient Disposition: Home (Routine Discharge)
Date of Disposition: 01/10/24
Time of Disposition: 14:51
Patient with high blood pressure during this ER visit?: Yes
Condition: Fair
Discharge Problem:
Behavioral changes secondary to dementia
Instructions: Dementia ED, BLOOD PRESSURE
Prescriptions:
No Action
acetaminophen [Tylenol] 325 mg Tablet
650 mg PO Q6HPRN PRN (Reason: mild pain)
polyethylene glycol 3350 [Miralax] 17 gram Powder In Packet
17 g PO DAILYPRN PRN (Reason: constipation)
sertraline 100 mg Tablet
100 mg PO DAILY
cyanocobalamin (vitamin B-12) 1,000 mcg Tablet
1,000 mcg PO DAILY
thiamine HCl (vitamin B1) 100 mg Tablet
100 mg PO DAILY
Theragen Tablet
1 tab PO DAILY
amlodipine [Norvasc] 2.5 mg Tablet
7.5 mg PO DAILY
melatonin 3 mg Tablet
3 mg PO HS
aspirin 81 mg Tablet,Delayed Release (Dr/Ec)
81 mg PO DAILY
quetiapine [Seroquel] 100 mg Tablet
125 mg PO DAILY
famotidine [Pepcid] 20 mg Tablet
20 mg PO DAILY
magnesium hydroxide [Milk of Magnesia] 400 mg/5 mL Suspension
2,400 mg PO [id number] PRN (Reason: constipation)
tamsulosin [Flomax] 0.4 mg Capsule
0.4 mg PO DAILY
sodium bicarbonate 650 mg Tablet
650 mg PO BID
bisacodyl [Dulcolax (bisacodyl)] 10 mg Suppository
10 mg [place] DAILYPRN PRN (Reason: if no bm aftr mom)
lidocaine 5 % Adhesive Patch,Medicated
1 patch TOPICAL DAILY
Fleet Enema 19-7 gram/118 mL Enema
118 ml [place] DAILYPRN PRN (Reason: if no bm aftr dulolcax)
tacrolimus 1 mg Capsule
1 mg PO HS
tacrolimus 1 mg Capsule
2 mg PO DAILY
simethicone [Gas-X] 80 mg Tablet,Chewable
80 mg PO Q6HPRN PRN (Reason: gas pains)
clonazepam 0.5 mg Tablet,Disintegrating
0.5 mg PO TID
mycophenolate sodium 360 mg Tablet,Delayed Release (Dr/Ec)
720 mg PO TID
loperamide 1 mg/7.5 mL Liquid
7.5 mg PO DAILY
budesonide-formoterol [Symbicort] 160-4.5 mcg/actuation Hfa Aerosol Inhaler
1 inh INHALATION R BID
nebivolol 20 mg Tablet
20 mg PO BID
cholecalciferol (vitamin D3) [Vitamin D3] 125 mcg (5,000 unit) Tablet
125 mcg PO Q48H
Eliquis 5 mg Tablet
5 mg PO BID
Senna Plus 8.6-50 mg Capsule
1 tab-cap PO DAILYPRN PRN (Reason: constipation)
magnesium chloride 64 mg magnesium Tablet
128 mg PO DAILY
Referrals:
Jonah Downing DO [Family Provider] -
Activity Restrictions/Additional Instructions:
As discussed, you are being discharged home at this time, to the care of your family. You must contact your primary care physician ARAM, upon returning home, to continue all your medications.
Interventions
Interventions:
*Risk Screen - Suicide Last Done: 01/10/24 10:24
*General Assessment Last Done: 01/10/24 10:24
*Neglect/Abuse Screening Last Done: 01/10/24 10:24
*ED COVID-19 Vaccine History Last Done: 01/10/24 10:24
ED-Psychological Assessment Last Done: 01/11/24 09:25
Discharge Date and Time
Print Language: UKRAINIAN
--- NOTE | 2024-01-11 15:17 | CM ---
Multiple meetings with family bedside throughout day with son/Jason and DIL/Leeroyi
[facility] continues to refuse readmission to SNF after numerous discussions throughout day
They are unable to provide private room or 1:1 for transition to SNF
Sister facilities have also declined referral
Approx 30 SNF referrals sent in [facility] and majority declined referral
No accepting SNF at this time
Family has elected to take pt home under their 24/ care
Pt independent in room and without VN needs
Bedside meeting to discuss dc planning with Dr Thacker
Pt has an established PCP in [place] and family will coordinate continuation of care and medications
provided community resources in the [place] area day prior to family
[place] [employer], legal services and SNF list provided with dementia unit if needed again
Aging waiver info also provided day prior
Family confirmed receipt of resources
No other dc needs noted
Update to CM Director Delbert Rogel
Discharge Disposition- home with family and community resources
== END 2024-01-11 15:07 | disposition home or self-care (01) ==
LOC: EMR 10:04
PROVIDERS: CONSULT PHYSICIAN Psychiatry & Neurology Psychiatry; EMERGENCY PHYSICIAN Emergency Medicine; FAMILY PHYSICIAN Internal Medicine
DX: F03.918 Unspecified dementia, unspecified severity, with other behavioral disturbance (principal); I12.9 Hypertensive chronic kidney disease with stage 1 through stage 4 chronic kidney disease, or unspecified chronic kidney disease; N18.9 Chronic kidney disease, unspecified
CPT/HCPCS: 99283; 80048; 84443; 85027